=== PATIENT | male | born 1955 | race Caucasian/White ===

== ENCOUNTER → 2016-09-19 | Day surgery (SDC) | payer BC ==
[2016-09-08 09:09] VITALS: Ht 177.8 cm; Wt 86.4 kg
[~2016-09-19] VITALS: Ht 177.8 cm; Wt 86.4 kg
[~2016-09-19] MED LIST: CHOL1CAP57 PO; FINA5TAB4 PO; GLC500 PO; LIDOCAINE HCL 2% 2 ML VIAL (20MG/ML) ONE; LOSA1TAB38 PO; MIDAZOLAM HCL 1 MG/ML 2ML VIAL ONE; MULTCHW PO; OXYC-57 PO; PROPOFOL IV EMULSION 10 MG/ML 20 ML VIAL IV ONE; SIMV20TA2 PO; SODIUM CHLORIDE 0.9% 500ML 500 ML IV ONE; ZINC PO
--- NOTE | 2016-09-19 08:44 | Endo History and Physical ---
History & Physical Date of Service: Sep 19, 2016. Chief Complaint: history of polyps Referring Physician: Dr. Yaakov Calderón History of Present Illness 61 yo CM who presents for colonoscopy secondary to history of polyps. Past Medical History Arthritis, Male Genitourinary Prob., High Cholesterol, Sleep Apnea, Hypertension Past Surgical History Hx Cardiac Surgery: No Hx Internal Defibrillator: No Hx Pacemaker: No Hx Abdominal Surgery: No Hx of Implantable Prosthesis: No Hx Post-Op Nausea and Vomiting: No Hx Cancer Surgery: No Hx Thoracic Surgery: No Hx Orthopedic: No Hx Urinary Tract Surgery: No Family History None Social History Smoking Status: Never Smoker Hx Substance Use: No Hx Alcohol Use: No Allergies Coded Allergies: No Known Allergies (Verified , 09/19/16) Current Medications Reported Home Medications Medications Dose Route/Sig Max Daily Dose Days Date Category Vitamin D3 (Cholecalciferol) 1,000 Unit Cap 1 Cap PO QAM 08/04/15 Reported Centrum Silver (Multiple Vitamins W/ Minerals) 1 Chw Chw 1 Tab PO QAM 08/04/15 Reported Cozaar (Losartan Potassium) 100 Mg Tab 100 Mg PO QAM 08/04/15 Reported Proscar (Finasteride) 5 Mg Tab 5 Mg PO HS 08/04/15 Reported Metformin HCl 500 Mg Tab 1 Tab PO BID 08/04/15 Reported Zocor (Simvastatin) 20 Mg Tab 20 Mg PO QPM 03/26/09 Reported Vital Signs Weight (Kilograms): 86.36 Height (Feet): 5 Height (Inches): 10 Date Time Temp Pulse Resp B/P Pulse Ox O2 Delivery O2 Flow Rate FiO2 09/19/16 08:17 37 83 20 160/87 97 Room Air Physical Exam General Appearance: WD/WN, no apparent distress Respiratory/Chest: Auscultation: breath sounds normal Cardiovascular: Heart Auscultation: RRR Abdomen: Bowel Sounds: normal Inspection & Palpation: soft, non-distended, no tenderness, guarding & rebound Assessment and Plan Assessment: 61 yo CM who presents for colonoscopy secondary to history of polyps. Plan: Proceed with colonoscopy.
--- NOTE | 2016-09-19 09:11 | Discharge Instructions ---
Endoscopy Patient Instructions Date / Procedure(s) Performed Sep 19, 2016. Colonoscopy Allergy Information Coded Allergies: No Known Allergies (Verified , 09/19/16) Discharge Date / Findings Sep 19, 2016. Colon polyps Internal hemorrhoids Medication Instructions Stopped Medication(s): Stopped meds on Monday except Cozaar OK to resume all medications today as prescribed Reported Home Medications Medications Dose Route/Sig Max Daily Dose Days Date Category Vitamin D3 (Cholecalciferol) 1,000 Unit Cap 1 Cap PO QAM 08/04/15 Reported Centrum Silver (Multiple Vitamins W/ Minerals) 1 Chw Chw 1 Tab PO QAM 08/04/15 Reported Cozaar (Losartan Potassium) 100 Mg Tab 100 Mg PO QAM 08/04/15 Reported Proscar (Finasteride) 5 Mg Tab 5 Mg PO HS 08/04/15 Reported Metformin HCl 500 Mg Tab 1 Tab PO BID 08/04/15 Reported Zocor (Simvastatin) 20 Mg Tab 20 Mg PO QPM 03/26/09 Reported Provider Instructions Activity Restrictions - No exercising or heavy lifting for 24 hours. - Do not drink alcohol the day of the procedure. - Do not drive a car or operate machinery until the day after the procedure. - Do not make any important decisions or sign important papers in 24 hours after the procedure. Following Day: - Return to full activity which may include returning to work/school. Diet Start your diet with liquids and light foods (jello, soup, juice, toast). Then eat your usual diet if not nauseated. Treatment For Common After Affects For mild abdominal pain, bloating, or excessive gas: - Rest - Eat lightly - Lie on right side Follow-Up Information Follow-up with Dr. Yaakov Calderón as scheduled Anesthesia Information What You Should Know You have had a procedure that required some medicine to reduce anxiety and discomfort. This treatment is called moderate sedation. After receiving the treatment, you may be sleepy, but you will be able to breathe on your own. The effects of the treatment may last for several hours. Follow these instructions along with Activity/Diet recommendations noted above: * Do NOT do anything where dizziness or clumsiness would be dangerous. * Rest quietly at home today, then you can be up and about tomorrow. * Have a responsible person stay with you the rest of today. * You may have had an I.V. today. If so, you may take the dressing off later today. Recommendations Call your doctor if: * Trouble breathing * Continuous vomiting for more than 24 hours * Temperature above 101 degrees * Severe abdominal pain or bloating * Pain not relieved by pain medicine ordered * There is increased drainage or redness from any incision * A large amount of rectal bleeding greater than 2-3 tablespoons. (If you had a polyp/s removed or have hemorrhoids, a small amount of blood - from the rectum is to be expected.) * You have any unanswered questions or concerns. IN THE EVENT OF A SERIOUS EMERGENCY, GO TO THE NEAREST EMERGENCY ROOM Your discharge instructions were prepared by provider Willian Shaw. Patient Instructions Signature Page Carlitos Barry Patient (or Guardian) Signature/Date: I have read and understand the instructions given to me by my caregivers. Caregiver/RN/Doctor Signature/Date: The above-named patient and/or guardian has received patient instructions on this date. + Original Patient Signature Page (only) stays with chart. Please make copy for patient.
--- NOTE | 2016-09-19 09:23 | Anesthesiology Progress Note ---
Anesthesia Post Op Note Date & Time Sep 19, 2016 at 09:23 Vital Signs Pain Intensity: 0 Vital Signs Past 12 Hours Date Time Temp Pulse Resp B/P Pulse Ox O2 Delivery O2 Flow Rate FiO2 09/19/16 09:14 37 82 20 135/76 98 Room Air 09/19/16 08:17 37 83 20 160/87 97 Room Air Notes Mental Status: alert / awake / arousable, participated in evaluation Pt Amnestic to Procedure: Yes Nausea / Vomiting: adequately controlled Pain: adequately controlled Airway Patency, RR, SpO2: stable & adequate BP & HR: stable & adequate Hydration State: stable & adequate Anesthetic Complications: no major complications apparent
[2016-09-19 09:44] VITALS: BP 145/92; PULSE 75; O2SAT 99
--- NOTE | 2016-09-19 11:05 | GI REPORT ---
Procedure Date: 09/19/2016 8:45 AM Procedure: Colonoscopy Indications: High risk colon cancer surveillance: Personal history of colonic polyps Medicines: Monitored Anesthesia Care Complications: No immediate complications. Estimated Blood Loss: Estimated blood loss: none. Procedure: Pre-Anesthesia Assessment: - Prior to the procedure, a History and Physical was performed, and patient medications and allergies were reviewed. The patient's tolerance of previous anesthesia was also reviewed. The risks and benefits of the procedure and the sedation options and risks were discussed with the patient. All questions were answered, and informed consent was obtained. Prior Anticoagulants: The patient has taken no previous anticoagulant or antiplatelet agents. ASA Grade Assessment: II - A patient with mild systemic disease. After reviewing the risks and benefits, the patient was deemed in satisfactory condition to undergo the procedure. After I obtained informed consent, the scope was passed under direct vision. Throughout the procedure, the patient's blood pressure, pulse, and oxygen saturations were monitored continuously. The scope was introduced through the anus and advanced to the terminal ileum. The colonoscopy was performed without difficulty. The patient tolerated the procedure well. The quality of the bowel preparation was good. The terminal ileum, ileocecal valve, appendiceal orifice, and rectum were photographed. Findings: Two sessile polyps were found in the ascending colon and in the cecum. The polyps were 5 to 6 mm in size. These polyps were removed with a hot snare. Resection and retrieval were complete. Non-bleeding internal hemorrhoids were found during retroflexion. The hemorrhoids were small. Impression: - Two 5 to 6 mm polyps in the ascending colon and in the cecum, removed with a hot snare. Resected and retrieved. - Non-bleeding internal hemorrhoids. Recommendation: - Resume previous diet. - Continue present medications. - Repeat colonoscopy for surveillance based on pathology results. - Return to primary care physician as previously scheduled. Willian Shaw DO 09/19/2016 9:16:42 AM This report has been signed electronically. Note Initiated On: 09/19/2016 8:45 AM I attest to the content of the Intraoperative Record and orders documented therein, exceptions below
== END | disposition home or self-care (01) ==
LOC: C.GI 07:48
PROVIDERS: ATTEND Internal Medicine
DX: Z12.11 Encounter for screening for malignant neoplasm of colon (principal); D12.2 Benign neoplasm of ascending colon; D12.0 Benign neoplasm of cecum; K64.8 Other hemorrhoids; I10 Essential (primary) hypertension; G47.30 Sleep apnea, unspecified; E78.00 Pure hypercholesterolemia, unspecified

== ENCOUNTER → 2017-01-09 | Outpatient (CLI) | payer BC ==
[~2017-01-09] MED LIST changes: -LIDOCAINE HCL 2% 2 ML VIAL (20MG/ML) ONE; -MIDAZOLAM HCL 1 MG/ML 2ML VIAL ONE; -PROPOFOL IV EMULSION 10 MG/ML 20 ML VIAL IV ONE; -SODIUM CHLORIDE 0.9% 500ML 500 ML IV ONE
[2017-01-09 12:17] LABS: HEMATOCRIT 43.8 % (42-52); MEAN CELL VOLUME 88.1 fL (80-100); MEAN CORPUSCULAR HEMOGLOBIN 30.4 pg (25-34); MEAN CORPUSCULAR HGB CONC 34.5 g/dl (32-36); MEAN PLATELET VOLUME 9.5 fL (7.4-10.4); PLATELET COUNT 119 K/uL (130-400); RED BLOOD COUNT 4.97 M/uL (4.7-6.1); WHITE BLOOD COUNT 6.13 K/uL (4.8-10.8)
[2017-01-09 12:34] LABS: ALT/SGPT 28 U/L (12-78); BLOOD UREA NITROGEN 15 mg/dl (7-18); BUN/CREATININE RATIO 14.6 (10-20); CARBON DIOXIDE 27 mmol/L (21-32); CHLORIDE 110 mmol/L (98-107); CHOLESTEROL 141 mg/dl (0-200); GLUCOSE 96 mg/dl (70-99); POTASSIUM 3.6 mmol/L (3.5-5.1); SODIUM 146 mmol/L (136-145); TRIGLYCERIDES 108 mg/dl (0-150); VERY LOW DENSITY LIPOPROT CALC 22 mg/dl
[2017-01-09 12:43] LABS: ESTIMATED AVERAGE GLUCOSE 134 mg/dl; HA1C FLAG Normal (Normal)
[2017-01-09 12:44] LABS: ALB/GLOB RATIO 1.1 (0.9-2); ALKALINE PHOSPHATASE 89 U/L (45-117); AST/SGOT 16 U/L (15-37); CHOLESTEROL/HDL RATIO 2.6; HDL CHOLESTEROL 54 mg/dl; LDL CHOLESTEROL CALCULATED 65 mg/dl
--- NOTE | 2017-01-09 16:06 | DIAGNOSTIC IMAGING REPORT ---
SINUS CT CT DOSE: 301.30 mGycm HISTORY: CHRONIC SINUSITIS TECHNIQUE: Multiaxial CT images of the paranasal sinuses were performed and reformatted in the coronal plane without the use of contrast. COMPARISON: Head CT 08/24/2015. FINDINGS: Complete opacification of the right frontal sinus. However, the right frontoethmoidal recess is patent. The left frontal sinus, residual ethmoid air cells, sphenoid sinuses, and maxillary sinuses are clear. The mastoid air cells are clear. Bilateral ethmoidectomies. Orbital floors and lamina papyracea are intact. Narrowing and partial opacification of the right ethmoid infundibulum. The brain parenchyma and orbits are unremarkable. Nasal septum demonstrates slight right deviation. IMPRESSION: 1. Complete opacification of right frontal sinus. 2. Postoperative changes as described above. Electronically signed by: Gerson Lobo M.D. 01/09/2017 4:05 PM Dictated Date/Time: 01/09/2017 3:43 PM
--- NOTE | 2017-01-13 10:53 | CODING QUERY MEDICAL NECESSITY ---
SUPPORTING DIAGNOSIS NEEDED A supporting diagnosis is required for the test/procedure performed on this patient in order for us to be reimbursed by the patient's insurance. Please provide a supporting diagnosis for the following test/procedure listed below next to the test name along with your signature. *If there is no additional diagnosis for this patient that would support the following test/procedure please document that below next to the test/procedure. Test(s)/Procedure(s) that require a supporting diagnosis: * PSA DIAGNOSIS: * VITAMIN B12 DIAGNOSIS: Provider Signature: Date: Thank you Debra Escobar [place] [employer] Once completed, please kindly fax back to [phone] For questions please call [phone]
== END | disposition home or self-care (01) ==
LOC: C.CTS 10:24
PROVIDERS: ATTEND Otolaryngology
DX: R73.09 Other abnormal glucose (principal); J32.9 Chronic sinusitis, unspecified; N40.0 Benign prostatic hyperplasia without lower urinary tract symptoms; D51.9 Vitamin B12 deficiency anemia, unspecified

== ENCOUNTER → 2017-02-06 | Outpatient (CLI) | payer BC | END | disposition home or self-care (01) | LOC: C.CPL 16:25 | PROVIDERS: ATTEND Family Medicine | DX: Z01.810 Encounter for preprocedural cardiovascular examination (principal) ==

== ENCOUNTER → 2017-02-16 | Day surgery (SDC) | payer BC ==
[2017-02-13 09:04] VITALS: Ht 177.8 cm; Wt 86.4 kg
--- NOTE | 2017-02-15 16:36 | History and Physical: Surg Cnt ---
History & Physical Date Feb 15, 2017. 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 Past Medical/Surgical History Medical Problems: (1) Hypertension Additional History Hepatic Disease: No Endocrine Disorder: No Kidney Disease: No Hypertension: No Heart Disease: No Bleeding Tendencies: No Infectious Diseases: No Allergies Coded Allergies: No Known Allergies (Verified , 02/13/17) Home Medications Scheduled Cholecalciferol (Vitamin D3), 1 CAP PO QAM Finasteride (Proscar), 5 MG PO HS Losartan Potassium (Cozaar), 100 MG PO QAM Metformin HCl (Metformin HCl), 1 TAB PO BID Multiple Vitamins W/ Minerals (Centrum Silver), 1 TAB PO QAM Simvastatin (Zocor), 20 MG PO QPM [Zinc], 22 MG PO QAM Physical Examination Skin: warm/dry, no rash Eyes: normal inspection, EOMI, sclerae normal ENT: normal ENT inspection, pharynx normal Head: normocephalic, atraumatic Neck: supple, no adenopathy, trachea midline Respiratory/Chest: lungs clear, normal breath sounds, no respiratory distress Cardiovascular: regular rate, rhythm, no edema, no murmur Abdomen / GI: normal bowel sounds, non tender Back: normal inspection Extremities: normal inspection, normal range of motion Neurologic/Psych: no motor/sensory deficits, alert, normal reflexes, oriented x 3 Diagnosis recurrent papilloma right frontal sinus Plan of Treatment endoscopic sinus surgery
[~2017-02-16] VITALS: Ht 177.8 cm; Wt 86.4 kg
[~2017-02-16] MED LIST changes: +ATROPINE SULFATE 0.1 MG/ML 5ML SYR IV PRN; +CEFAZOLIN 2000 MG/60 ML D5W IV SCH; +DEXAMETHASONE SOD INJ 4 MG/ML VIAL ONE; +EpHEDrine SULFATE INJ 50 MG/ML AMP IV PRN; +EpINEphrine INJ 1MG/ML AMP 1 MG/ML AMP ONE; +FENTANYL CITRATE INJ 50 MCG/1 ML 2 ML VIAL IV PRN; +FENTANYL CITRATE INJ 50 MCG/1 ML 2 ML VIAL ONE; +FLUMAZENIL 0.1 MG/1 ML 10 ML VIAL IV PRN; +GLYCOPYRROLATE INJ 0.2 MG/ML VIAL ONE; +LABETALOL HCL IV 5 MG/ML 20ML IV PRN; +LABETALOL HCL IV 5 MG/ML 20ML IV STA; +LACTATED RINGER'S 1000ML 1,000 ML IV SCH; +LIDO 2%/EPINEPHRINE 1:100000 20 ML VIAL INFIL ONE; +LIDOCAINE 4% MPF SOAK 5 ML = 1 DOSE TOP ONE; +LIDOCAINE HCL 2% 2 ML VIAL (20MG/ML) ONE; +MIDAZOLAM HCL 1 MG/ML 2ML VIAL ONE; +NALOXONE HCL 0.4 MG/1 ML VIAL/CARP IV PRN; +NEOSTIGMINE METHYLSULFATE 5 MG/5 ML SYR ONE; +ONDANSETRON INJ 2 MG/ML 2 ML VIAL IV PRN; +ONDANSETRON INJ 2 MG/ML 2 ML VIAL ONE; +OXYCODONE/ACETAMINOPHEN 5-325 TAB PO PRN; +PROMETHAZINE HCL INJ 12.5 MG in SODIUM CHLORIDE 0.9% 50ML 50 ML IV PRN; +PROPOFOL IV EMULSION 10 MG/ML 20 ML VIAL IV ONE; +SODIUM CHLORIDE 0.9% 1000ML 1,000 ML IV SCH; +SUCCINYLCHOLINE CHLORIDE 20 MG/ML 10 ML VIAL IV ONE
--- NOTE | 2017-02-16 12:04 | History & Physical Bridge Note ---
H&P Re-Evaluation Bridge Note: I have examined the patient, reviewed the History & Physical and in the interval since the performance of the History & Physical I have noted the following changes of clinical significance: No changes noted
--- NOTE | 2017-02-16 13:35 | Discharge Instructions-SurgCtr ---
Discharge Instructions Date of Service Feb 16, 2017. Visit Reason for Visit: Chronic Sinusitis, Papilloma Discharge Discharge Diagnosis / Problem: polyps Discharge Goals Goal(s): Improve disease control Activity Recommendations Activity Limitations: resume your previous activity Anesthesia . Post Anesthesia Instructions: If you have had General Anesthesia or IV Sedation: * Do not drive today. * Resume driving when surgeon permits. * Do not make important decisions or sign legal documents today. * Call surgeon for: 1. Temperature elevations greater than 101 degrees F. 2. Uncontrollable pain. 3. Excessive bleeding. 4. Persistent nausea and vomiting. 5. Medication intolerance (nausea, vomiting or rash). * For nausea and vomiting use only clear liquids such as: tea, soda, bouillon until nausea subsides, then gradually increase diet as tolerated. * If you have any concerns or questions, call your surgeon's office. If physician is unavailable and it is an emergency, call 911 or go to the nearest emergency room. . Instructions / Follow-Up Instructions / Follow-Up ACTIVITY RECOMMENDATIONS: * Being up and around is good, but no strenuous activity, heavy lifting or physical exertion for one week. * Keep your head elevated 30 degrees when lying down or sleeping. * Do not blow your nose for 48 hours, sniff back instead. * Avoid hot showers. OVER THE COUNTER MEDICATIONS: * You may use Tylenol * Avoid aspirin or aspirin containing products, e.g. as they may increase bleeding. SPECIAL CARE INSTRUCTIONS: * Expect to have bloody drainage from your nose and/or down your throat for one to three days. Change drip pad as needed. * Begin irrigating your nose with saline solution today, at least six to ten times per day and sniff back to help remove old clots or crust. * You may experience nasal and facial congestion, pain and pressure, this is normal. * Please call with any significant and/or progressive pain, redness, swelling around the eyes, visual changes, fever of 101.5 degrees F, active bleeding or any problems or concerns. * If active bleeding occurs, spray the nose three times at one minute intervals with Afrin spray and call or cell phone: . If unable to reach the doctor, go to the nearest Emergency Department. Special Diet: * Avoid extremely hot fluids. FOLLOW UP VISIT: Follow-up Visit with Dr. Morataya If not already scheduled, please call to schedule. Diet Recommendations Home Diet: no limitations Procedures Procedures Performed: Endoscopic Sinus Surgery, Excision Right Frontal Sinus Polyp, Right and Left Total Ethmoidectomy Pending Studies Studies pending at discharge: no Medical Emergencies . Who to Call and When: Medical Emergencies: If at any time you feel your situation is an emergency, please call 911 immediately. . Non-Emergent Contact Non-Emergency issues call your: Primary Care Provider . . "Provider Documentation" section prepared by Patricia Morataya. . [place] Drug Monitoring Program Search Results: no issues identified
--- NOTE | 2017-02-16 13:37 | Medical Student: [facility] ---
Operative Report Operative Date Feb 16, 2017. Pre-Operative Diagnosis Right Frontal sinus papilloma Post-Operative Diagnosis same Procedure(s) Performed Endoscopic sinus surgery, Excision of right frontal sinus polyp, Right and left total ethmoidectomy Surgeon Dr. Morataya Clinical Trial Head Surgeon(s) N/a Estimated Blood Loss 15cc Findings Right frontal sinus polyp Fluids (cc crystalloids) Lactated Ringers Specimens Right frontal sinus polyp, path pending Anesthesia General Complication(s) None Disposition Recovery Room / PACU Description of Procedure See Surgeon Op note, Dr. Morataya
--- NOTE | 2017-02-16 13:47 | OPERATIVE REPORT ---
DATE OF OPERATION: 02/16/2017 PREOPERATIVE DIAGNOSES: Chronic sinusitis and recurrent papilloma. POSTOPERATIVE DIAGNOSES: Same. PROCEDURES: Right and left frontal sinusotomy and right and left total ethmoidectomy. SURGEON: Dr. Morataya. ANESTHESIA: General endotracheal. COMPLICATIONS: None. BLOOD LOSS: 30 mL. HISTORY: This 61-year-old gentleman presented with recurrent gross inverted papilloma and right ethmoid and right nasofrontal duct. He again has a polypoid lesion at the right ethmoid blocking the nasofrontal duct. DESCRIPTION OF PROCEDURE: The patient was brought to the operating room and placed in the supine position. General endotracheal anesthesia was induced, prepped, draped in the usual sterile manner. Nose decongested using cottonoids with topical solution of 4 mL of 4% Xylocaine with 1 mL of adrenaline. Injection of 2% Xylocaine with 1:100,000 strength epinephrine was also used. The Colibri IO device calibrated and used for the entire procedure. The left nasofrontal duct was cannulated with a guidewire with Colibri IO computer guidance and dilated using the 6-mm balloon. This dilated easily. Attention was turned to the right side where the right nasofrontal duct was dilated with the balloon with [employer] computer guidance. The guidewire was left in place as a marker for removing polyps. The Blakesley forceps was used to remove the polyps for specimen. These looked more like polyps then papilloma. At this point, the balloon was used to irrigate out the right frontal sinus purulent material and also the balloon was reinflated to push 2 polyps further down into the ethmoid area. These 2 polyps from the nasofrontal duct were removed using the upward Blakesley forceps, opening up the nasofrontal duct. The scar tissue in the ethmoid cavity was further opened using the shaver coupled with the BrainLAB device, opening up the anterior and posterior ethmoids. The left nasofrontal duct was opened slightly using the shaver superiorly and also posteriorly, the ethmoids were partially cover with adhesions and these were removed using the shaver, opening up the left anterior and posterior ethmoids. The mini stent was placed in the right nasofrontal duct and a regular stent was placed in the left middle meatus. The patient tolerated the procedure well and was taken to the recovery area in satisfactory condition. I attest to the content of the Intraoperative Record and any orders documented therein. Any exception s are noted below.
[2017-02-16 14:25] VITALS: TEMP 36.5
[2017-02-16 15:03] VITALS: BP 156/92; PULSE 66; O2SAT 97
--- NOTE | 2017-02-16 15:09 | Anesthesia Progress Nt - [facility] ---
Anesthesia Post Op Note Date & Time Feb 16, 2017 at 15:08 Vital Signs Pain Intensity: 0 Vital Signs Past 12 Hours Date Time Temp Pulse Resp B/P (MAP) Pulse Ox O2 Delivery O2 Flow Rate FiO2 02/16/17 15:03 66 20 156/92 (113) 97 Room Air 02/16/17 14:25 36.5 62 22 158/95 (116) 95 Room Air 02/16/17 14:22 67 12 02/16/17 14:22 68 12 95 02/16/17 14:21 169/97 02/16/17 14:17 71 13 02/16/17 14:17 71 13 97 02/16/17 14:16 146/96 02/16/17 14:15 36.6 69 20 146/96 96 Room Air 02/16/17 14:14 74 21 02/16/17 14:14 73 21 97 02/16/17 14:13 74 21 02/16/17 14:13 74 21 97 02/16/17 14:11 152/94 02/16/17 14:08 67 14 96 02/16/17 14:08 68 14 02/16/17 14:07 68 16 02/16/17 14:07 67 16 96 02/16/17 14:06 161/94 02/16/17 14:04 151/99 02/16/17 14:02 71 18 02/16/17 14:02 70 18 97 02/16/17 14:01 163/101 02/16/17 13:57 76 14 97 02/16/17 13:57 76 14 02/16/17 13:56 162/105 02/16/17 13:53 160/97 02/16/17 13:52 72 17 02/16/17 13:52 73 17 158/103 100 02/16/17 13:51 158/107 02/16/17 13:50 72 15 02/16/17 13:50 71 15 100 02/16/17 13:45 72 17 165/93 02/16/17 13:45 72 17 02/16/17 13:44 168/102 02/16/17 13:43 76 18 100 02/16/17 13:43 78 18 02/16/17 13:41 163/101 02/16/17 13:38 77 4 02/16/17 13:38 75 4 100 02/16/17 13:37 78 11 02/16/17 13:37 78 11 100 02/16/17 13:36 167/100 02/16/17 13:32 81 8 100 02/16/17 13:32 81 8 02/16/17 13:31 78 12 164/96 100 02/16/17 13:31 78 12 02/16/17 13:27 168/104 02/16/17 13:26 36.7 84 18 168/104 98 Room Air 02/16/17 13:26 85 99 02/16/17 13:26 85 02/16/17 10:18 37.1 60 18 144/94 (111) 99 Room Air Notes Mental Status: alert / awake / arousable, participated in evaluation Pt Amnestic to Procedure: Yes Nausea / Vomiting: adequately controlled Pain: adequately controlled Airway Patency, RR, SpO2: stable & adequate BP & HR: stable & adequate Hydration State: stable & adequate Anesthetic Complications: no major complications apparent
== END | disposition home or self-care (01) ==
LOC: X.SURG 09:58
PROVIDERS: ATTEND Otolaryngology
DX: J01.11 Acute recurrent frontal sinusitis (principal); J33.8 Other polyp of sinus; I10 Essential (primary) hypertension; G47.33 Obstructive sleep apnea (adult) (pediatric); E78.5 Hyperlipidemia, unspecified; E11.9 Type 2 diabetes mellitus without complications; Z79.84 Long term (current) use of oral hypoglycemic drugs

== ENCOUNTER → 2017-03-24 | Outpatient (CLI) | payer BC ==
[~2017-03-24] MED LIST changes: -ATROPINE SULFATE 0.1 MG/ML 5ML SYR IV PRN; -CEFAZOLIN 2000 MG/60 ML D5W IV SCH; -DEXAMETHASONE SOD INJ 4 MG/ML VIAL ONE; -EpHEDrine SULFATE INJ 50 MG/ML AMP IV PRN; -EpINEphrine INJ 1MG/ML AMP 1 MG/ML AMP ONE; -FENTANYL CITRATE INJ 50 MCG/1 ML 2 ML VIAL IV PRN; -FENTANYL CITRATE INJ 50 MCG/1 ML 2 ML VIAL ONE; -FLUMAZENIL 0.1 MG/1 ML 10 ML VIAL IV PRN; -GLYCOPYRROLATE INJ 0.2 MG/ML VIAL ONE; -LABETALOL HCL IV 5 MG/ML 20ML IV PRN; -LABETALOL HCL IV 5 MG/ML 20ML IV STA; -LACTATED RINGER'S 1000ML 1,000 ML IV SCH; -LIDO 2%/EPINEPHRINE 1:100000 20 ML VIAL INFIL ONE; -LIDOCAINE 4% MPF SOAK 5 ML = 1 DOSE TOP ONE; -LIDOCAINE HCL 2% 2 ML VIAL (20MG/ML) ONE; -MIDAZOLAM HCL 1 MG/ML 2ML VIAL ONE; -NALOXONE HCL 0.4 MG/1 ML VIAL/CARP IV PRN; -NEOSTIGMINE METHYLSULFATE 5 MG/5 ML SYR ONE; -ONDANSETRON INJ 2 MG/ML 2 ML VIAL IV PRN; -ONDANSETRON INJ 2 MG/ML 2 ML VIAL ONE; -OXYCODONE/ACETAMINOPHEN 5-325 TAB PO PRN; -PROMETHAZINE HCL INJ 12.5 MG in SODIUM CHLORIDE 0.9% 50ML 50 ML IV PRN; -PROPOFOL IV EMULSION 10 MG/ML 20 ML VIAL IV ONE; -SODIUM CHLORIDE 0.9% 1000ML 1,000 ML IV SCH; -SUCCINYLCHOLINE CHLORIDE 20 MG/ML 10 ML VIAL IV ONE
--- NOTE | 2017-03-24 12:37 | DIAGNOSTIC IMAGING REPORT ---
LEFT TIBIA/FIBULA 2 VIEWS ROUTINE CLINICAL HISTORY: 61 years-old Male presenting with left leg pain, no trauma. TECHNIQUE: Frontal and lateral views of the left lower leg were obtained. COMPARISON: None. FINDINGS: Knee joint and ankle mortise grossly intact. No acute fracture or malalignment is evident. No significant soft tissue abnormality. IMPRESSION: No acute osseous injury of the left lower leg. Electronically signed by: Alexy Jimenez M.D. 03/24/2017 12:36 PM Dictated Date/Time: 03/24/2017 12:35 PM
--- NOTE | 2017-03-24 12:56 | DIAGNOSTIC IMAGING REPORT ---
LEFT EXTREMITY NONVASCULAR LIMITED CLINICAL HISTORY: 61 years-old Male presenting with L LEG PAIN. TECHNIQUE: Real-time grayscale ultrasound imaging of the left calf was performed. Color Doppler was also performed. COMPARISON: None. FINDINGS: No fluid collection or subcutaneous or skin thickening in the site of clinical interest at the anteromedial left calf. Patent deep and superficial veins of the left calf partially visualized. IMPRESSION: 1. No significant abnormality at the site of clinical concern in the left anteromedial calf. Electronically signed by: Alexy Jimenez M.D. 03/24/2017 12:54 PM Dictated Date/Time: 03/24/2017 12:54 PM
== END | disposition home or self-care (01) ==
LOC: C.ULTR 12:01
PROVIDERS: ATTEND Family Medicine
DX: M79.605 Pain in left leg (principal)

== ENCOUNTER → 2017-08-14 | Outpatient (CLI) | payer OTHER ==
--- NOTE | 2017-08-14 11:33 | DIAGNOSTIC IMAGING REPORT ---
PELVIS 1 OR 2 VIEW ROUTINE CLINICAL HISTORY: Bilateral back pain. COMPARISON STUDY: Sacroiliac joint radiographs February 27, 2016. FINDINGS: The sacroiliac joints and symphysis pubis are intact. No fracture or suspicious lesion is identified within the pelvis or hips. There is mild osteoarthritis of both hips. IMPRESSION: 1. No acute fracture within the pelvis or hips. 2. Mild osteoarthritis of the bilateral hips. Electronically signed by: Uziel Qiu M.D. 08/14/2017 11:32 AM Dictated Date/Time: 08/14/2017 11:31 AM
--- NOTE | 2017-08-14 11:36 | DIAGNOSTIC IMAGING REPORT ---
L-SPINE MIN 4 VIEWS ROUTINE CLINICAL HISTORY: BILATERAL BACK PAIN COMPARISON: Lumbar spine radiographs February 27, 2016. FINDINGS: There is minimal dextroscoliosis of the lumbar spine. Vertebral body heights are maintained. There is no fracture or suspicious lesion. There is moderate disc space narrowing with osteophytosis and vacuum disc phenomenon at L5-S1. There is mild multilevel degenerative disc disease and facet arthrosis at the remainder of the lumbar levels. IMPRESSION: 1. No acute lumbar spine fracture or subluxation. 2. Moderate degenerative disc disease at L5-S1. 3. Minimal dextroscoliosis of the lumbar spine. Electronically signed by: Uziel Qiu M.D. 08/14/2017 11:34 AM Dictated Date/Time: 08/14/2017 11:34 AM
== END | disposition home or self-care (01) ==
LOC: C.RAD1850 11:06
PROVIDERS: ATTEND Family Medicine
DX: M54.9 Dorsalgia, unspecified (principal); M51.37 Other intervertebral disc degeneration, lumbosacral region; M41.86 Other forms of scoliosis, lumbar region; M16.0 Bilateral primary osteoarthritis of hip

== ENCOUNTER → 2018-02-09 | Outpatient (CLI) | payer OTHER ==
[~2018-02-09] MED LIST changes: +ATOR-54 PO; -SIMV20TA2 PO
== END | disposition home or self-care (01) ==
LOC: C.CPL 13:23
PROVIDERS: ATTEND Otolaryngology
DX: Z01.810 Encounter for preprocedural cardiovascular examination (principal)

== ENCOUNTER 2021-11-30 07:26 | Observation (INO) ==
--- NOTE | 2021-11-16 11:57 | PAT Medication Instructions ---
Medication Instructions Date of Service November 16, 2021 Home Medications Medication Instructions Recorded sodium sul 1.479 gram-potas ch See Rx Instructions .ROUTE 11/16/21 0.188 gram-magnes sul 0.225 gram .COMPLEX #24 tab tablet (Sutab) atorvastatin 20 mg tablet 20 mg PO QAM cholecalciferol (vitamin D3) 25 mcg (1,000 unit) capsule (Vitamin D3) 1,000 unit PO QAM metformin 500 mg tablet 500 mg PO QAM multivitamin 1 tab PO QAM amlodipine 2.5 mg tablet 2.5 mg PO QAM metformin 500 mg tablet 1,000 mg PO QDD mometasone 50 mcg/actuation nasal spray (Nasonex) 2 spray INTRANASAL 4XWK sodium chloride 0.65 % nasal spray aerosol (Saline Nasal) 1 spray INTRANASAL DAILY zinc 22 mg tablet 22 mg PO QAM finasteride 5 mg tablet 5 mg PO QAM ascorbate calcium (vitamin C) 500 mg tablet 500 mg PO QAM peg 400-propylene glycol (PF) 0.4 %-0.3 % eye drops in a dropperette (Systane (PF)) 1 drp OPHTHALMIC (EYE) BID PRN sodium sul 1.479 gram-potas ch 0.188 gram-magnes sul 0.225 gram tablet (Sutab) See Rx Instructions .ROUTE .COMPLEX Continue as directed sodium sul 1.479 gram-potas ch 0.188 gram-magnes sul 0.225 gram tablet (Sutab) See Rx Instructions .ROUTE .COMPLEX (prep for colonoscopy) DO NOT take the morning of surgery cholecalciferol (vitamin D3) 25 mcg (1,000 unit) capsule (Vitamin D3) 1,000 unit PO QAM metformin 500 mg tablet 500 mg PO QAM multivitamin 1 tab PO QAM zinc 22 mg tablet 22 mg PO QAM ascorbate calcium (vitamin C) 500 mg tablet 500 mg PO QAM Take morning of surgery With a small sip of water, OTHERWISE NOTHING TO EAT OR DRINK AFTER MIDNIGHT: atorvastatin 20 mg tablet 20 mg PO QAM amlodipine 2.5 mg tablet 2.5 mg PO QAM mometasone 50 mcg/actuation nasal spray (Nasonex) 2 spray INTRANASAL 4XWK sodium chloride 0.65 % nasal spray aerosol (Saline Nasal) 1 spray INTRANASAL DAILY finasteride 5 mg tablet 5 mg PO QAM peg 400-propylene glycol (PF) 0.4 %-0.3 % eye drops in a dropperette (Systane (PF)) 1 drp OPHTHALMIC (EYE) BID PRN (if needed) Take evening before surgery metformin 500 mg tablet 1,000 mg PO QDD peg 400-propylene glycol (PF) 0.4 %-0.3 % eye drops in a dropperette (Systane (PF)) 1 drp OPHTHALMIC (EYE) BID PRN (if needed) Other Notes If you have any questions please call us at [phone] or [phone] or [phone] or [phone]
--- NOTE | 2021-11-17 13:04 | Anesthesiology Consultation ---
Date of Service November 17, 2021 Assessment & Plan (1) Encounter for pre-operative examination: - COVID screening: Per assessment on 11/17: No known COVID-19 positive contacts or current COVID-19 related symptoms. Travel screen negative. Surgeon arranging preop COVID testing. Awaiting results. - S/P Endoscopic sinus surgery (02/21/2019): [place] [facility] [place]G AM DOS - Cardiology office visit (10/06/21): "Cardiomegaly: This was described on his CT scan and chest x-ray. However, his echocardiogram did not suggest any c ardiac dilation or cardiomegaly. He does have very mild concentric LVH which would not likely suggest enlargement on other imaging studies. I do not believe he suffers from an enlarged heart.. Mitral regurgitation: No murmur on examination. Discovered incidentally on echocardiography. No symptoms. Preserved LV systolic function chamber dimension. This can be followed over time with repeat echocardiography in 2-3 years.. Hypertension: He describes some higher blood pressures at home on occasion. He plans to discuss additional options for treatment with his primary care physician in the next few weeks. We discussed the importance of regular exercise, maintaining a low-sodium diet, avoiding chronic nonsteroidal use and the importance of good sleep.. Preoperative: He does not manifest any cardiac symptoms or conditions which should preclude or necessitate additional testing leading up to his planned prostatectomy in November. Follow Up: No scheduled follow-up" Chart Review Chart Review: Acceptable Risk for Surgery and Patient seen in Pre Admission Testing Teaching & Discussion Pre-Anesthesia Teaching/Discussion Notes: Instructed NPO after midnight before surgery,except medications with 15 cc of water. Medication instructions provided according to the PAT guidelines. History Surgery Operation Date: 11/30/21 07:30 Proposed Procedures p Laparoscopic Robotic Assisted Radical Retropubic Prostatectomy Possible Open, Possible Lymph Node Dissection, Possible Suprapubic Tube Placement - Liam Moy MD Height/Weight Height: 5 ft 10 in Weight: 77 kg Allergies Allergy/AdvReac Type Severity Reaction Status Date / Time No Known Allergies Allergy Verified 11/19/21 08:01 Medications Home Medications Medication Instructions Recorded Confirmed Last Taken atorvastatin 20 mg tablet 20 mg PO QAM 01/18/19 11/17/21 02/16/21 05:10 cholecalciferol (vitamin D3) 25 1,000 unit PO QAM 01/18/19 11/19/21 11/17/21 mcg (1,000 unit) capsule (Vitamin D3) metformin 500 mg tablet 500 mg PO QAM 01/18/19 11/19/21 11/17/21 multivitamin 1 tab PO QAM 01/18/19 11/19/21 11/17/21 amlodipine 2.5 mg tablet 2.5 mg PO QAM 12/30/20 11/19/21 11/17/21 metformin 500 mg tablet 1,000 mg PO QDD 12/30/20 11/19/21 11/17/21 mometasone 50 mcg/actuation nasal 2 spray INTRANASAL 4XWK 12/30/20 11/17/21 Unknown spray (Nasonex) sodium chloride 0.65 % nasal spray 1 spray INTRANASAL DAILY 12/30/20 11/19/21 11/18/21 aerosol (Saline Nasal) zinc 22 mg tablet 22 mg PO QAM 12/30/20 11/19/21 11/17/21 finasteride 5 mg tablet 5 mg PO QAM 07/09/21 11/19/21 11/17/21 ascorbate calcium (vitamin C) 500 500 mg PO QAM 08/24/21 11/19/21 11/17/21 mg tablet peg 400-propylene glycol (PF) 0.4 1 drp OPHTHALMIC (EYE) BID PRN 11/16/21 11/19/21 11/18/21 %-0.3 % eye drops in a dropperette (Systane (PF)) sodium sul 1.479 gram-potas ch See Rx Instructions .ROUTE 11/16/21 11/19/21 11/19/21 0.188 gram-magnes sul 0.225 gram .COMPLEX #24 tab tablet (Sutab) Past Medical History Medical History Anxiety BPH (benign prostatic hyperplasia) Chronic back pain Depression Diabetes NIDDM Dystonia left hand- treated with botox/splinting in the past Eye inflamed macula swelling of left eye GERD (gastroesophageal reflux disease) controlled History of COVID-19 Dx 08/11/21 ([facility]) > symptoms at time: cough, mild fever > resolved History of IBS Hyperlipidemia Hypertension Meningioma Stable/under surveillance (Dr. Feliberto Flores; [facility] [place] [facility] [place] no surgical intervention- 07/2022 f/u recommended Osteoarthritis of shoulders, bilateral Prostate cancer Sleep apnea CPAP-compliant Superficial varicosities Multiple superficial varicosities within LLE with thrombus is identified within one of the superficial varicosities 09/21/21 ultrasound > "treated with NSAIDS"/no AC > no issues since per pt Temporomandibular joint disorder Clicking, no recent locking, wears plant guard HS Tinnitus Vertigo Intermittent Exercise / Class Metabolic Activity II 4-5 Yardwork/Stairs/Walk up hill (one FS (no CP, no SOB)) Past Family History Family History Father , Passed age 92 Prostate cancer patient not sure if accurate Family history of diabetes mellitus Mother , Passed age 74 Bladder cancer Family history of diabetes mellitus Brother Family history of diabetes mellitus Brother Family history of diabetes mellitus Other Has no children Past Surgical History Surgical History History of cataract surgery Right/Left History of colonoscopy X 2 History of colonoscopy with polypectomy History of endoscopic sinus surgery X 7 Endoscopic sinus surgery (02/21/2019): [place]#5, [place] [facility] [place] History of prostate biopsy (07/26/21) Dr. Liam Moy History of tonsillectomy History of tooth extraction Past Anesthesia History No Family Hx of Anesthesia Complications and Other (Awaremess with prior cataracts) History of PONV No Hx of PONV and Hx of Motion Sickness (+ occasional vertigo) Social History Smoking Status: Never smoker Do You Dip or Chew Tobacco: No Hx Alcohol Use: Yes Alcohol type: wine alcohol intake frequency: a few times a month Hx Substance Use: No substance use type: does not use Review of Systems Patient denies chest pain, shortness of breath, dyspnea on exertion, fever, chills, cough, wheezing, palpitations. Physical Exam Vital Signs VITALS BP 129/83 P 60 TEMP 97.98 SP02 98%RA RESP 18 PHYSICAL Full cervical extension range of motion. Full TMJ range of motion. TMD 3 finger breaths Mallampati Score 4 (small oral opening, macroglossia) Dentition: intact, + crown/root canal repair Lungs: clear throughout to auscultation Cardiac: regular rate and rhythm, no murmurs noted Spine: normal Carotid arteries: negative bruit Extremities: no edema Lab Results Anesthesia Preop Results Results Anesthesia Widget: WBC 5.55 K/uL (4.8-10.8) 11/17/21 Hgb 13.9 g/dL (14.0-18.0) L 11/17/21 Hct 40.8 % (42-52) L 11/17/21 Plt 143 K/uL (130-400) 11/17/21 Na 142 mmol/L (136-145) 11/17/21 K 3.4 mmol/L (3.5-5.1) L 11/17/21 Cl 107 mmol/L (98-107) 11/17/21 CO2 26 mmol/L (21-32) 11/17/21 BUN 18 mg/dl (6-23) 11/17/21 Creat 0.74 mg/dl (0.6-1.4) 11/17/21 Glucose Level 76 mg/dl (70-99(Fasting)) 11/17/21 Urine Color Yellow 11/17/21 Urine Appearance Clear (Clear) 11/17/21 Urine pH 5.0 (4.5-7.5) 11/17/21 Urine Specific [place] 1.021 (1.000-1.030) 11/17/21 Urine Protein Negative (Negative) 11/17/21 Urine Glucose (UA) Negative (Negative) 11/17/21 Urine Ketones Trace (Negative) H 11/17/21 Urine Blood Negative (Negative) 11/17/21 Urine Nitrite Negative (Negative) 11/17/21 Urine Bilirubin Negative (Negative) 11/17/21 Urine Urobilinogen Negative (Negative) 11/17/21 Urine Leukocyte Esterase Negative (Negative) 11/17/21 Blood Type B Positive 11/17/21 Antibody Screen NEGATIVE 11/17/21 Testing Laboratory Results 07/13/21 HGBA1C 6.7% Electrocardiogram Date: 09/15/21 Sinus bradycardia at 59 bpm. Incomplete right bundle branch block. Chest X-Ray Date: 11/17/21 Findings: + NAD Echocardiogram Date: 09/16/21 EF 50-55%. No regional motion abnormality. Mild concentric LVH. Grade 1 diastolic dysfunction. Mild TR. Moderate MR. RVSP normal.
[~2021-11-30 07:26] MED LIST changes: -ATOR-54 PO; -CHOL1CAP57 PO; -FINA5TAB4 PO; -GLC500 PO; +HEPARIN SOD 5,000 UNIT/0.5 ML VIAL SQ SCH; -LOSA1TAB38 PO; +LR 15ML/HR IV SCH; -MULTCHW PO; -OXYC-57 PO; -ZINC PO
[2021-11-30] MEDS ORDERED: DEXAMETHASONE SOD INJ 4 MG/ML VIAL ONE (09:14)
[2021-11-30] MEDS ORDERED: MIDAZOLAM HCL 1 MG/ML 2ML VIAL ONE (09:14)
[2021-11-30] MEDS ORDERED: ONDANSETRON INJ 2 MG/ML 2 ML VIAL ONE (09:14)
[2021-11-30] MEDS ORDERED: PROPOFOL IV EMULSION 10 MG/ML 20 ML VIAL IV ONE (09:14)
[2021-11-30] MEDS ORDERED: fentaNYL citrate 100 MCG/2 ML VIAL ONE (09:14)
[2021-11-30] MEDS ORDERED: ROCURONIUM BROMIDE 10 MG/ML 5 ML VIAL IV ONE (09:14)
[2021-11-30] MEDS ORDERED: LIDOCAINE 2% 2 ML VIAL/AMP(20MG/ML) INFIL ONE (09:14)
--- NOTE | 2021-11-30 09:17 | History & Physical Bridge Note ---
Date of Service November 30, 2021 History & Physical Bridge Note I have examined the patient, reviewed the History & Physical and in the interval since the performance of the History & Physical I have noted the following changes of clinical significance: no changes noted
[2021-11-30] MEDS ORDERED: ATROPINE SULFATE 0.1 MG/ML 10ML SYR IV PRN (09:28)
[2021-11-30] MEDS ORDERED: ONDANSETRON INJ 2 MG/ML 2 ML VIAL IV PRN ×2 (09:28→14:30)
[2021-11-30] MEDS ORDERED: PROMETHAZINE HCL 6.25 MG in SODIUM CHLORIDE 0.9% 50 ML IV PRN (09:28)
[2021-11-30] MEDS ORDERED: LABETALOL HCL IV 5 MG/ML 20ML IV PRN (09:28)
[2021-11-30] MEDS ORDERED: BUPIVACAINE 0.5 % 5 MG/1 ML MPF 30ML VIAL ONE (09:29)
[2021-11-30] MEDS ORDERED: KETOROLAC TROMETHAMINE 15 MG/ML VIAL IV PRN (09:32)
[2021-11-30] MEDS ORDERED: BELLADONNA/OPIUM SUPP 60 MG SUPP PR ONE (10:02)
[2021-11-30] MEDS ORDERED: HYDROmorphone INJ 2 MG/ML SYR/VIAL ONE (10:18)
[2021-11-30] MEDS ORDERED: LABETALOL HCL IV 5 MG/ML 20ML IV ONE (10:18)
[2021-11-30] MEDS ORDERED: hydrALAZINE HCL 20 MG/ML VIAL ONE (10:33)
[2021-11-30] MEDS ORDERED: FLOSEAL HEMOSTATIC MATRIX 10ML TOP ONE (10:38)
[2021-11-30] MEDS ORDERED: SURGICEL ABSORB HEMOSTAT 2IN X 14IN TOP ONE (10:47)
--- NOTE | 2021-11-30 12:29 | Operative Report ---
PG Post Operative Report Pre & Post Diagnosis Operation Date: 11/30/21 08:50 Pre-Op Diagnosis: Prostate Cancer Post-Op Diagnosis: Prostate Cancer I identified the patient and participated in the time-out.: Yes Procedure Operation Date: 11/30/21 08:50 Actual Procedures p Robotic Assisted Laparoscopic Radical Retropubic Prostatectomy, Bilateral Pelvic Lymph Node Dissection(Not Applicable) - Liam Moy MD Surgeon Liam Moy MD Water Mechanic Tanja Chandra Estimated Blood Loss 100 Findings Consistent with Post-Op Diagnosis Specimens 1. Periprostatic fat 2. Left pelvic lymph nodes 3. Right pelvic lymph nodes 4. Prostate and seminal vesicles Description of Procedure The patient was identified in the preoperative holding area, appropriate informed consents were reviewed and completed, and he was transported to the operating suite. Subcutaneous heparin was administered in the pre-operative holding area. Upon arrival in the operating suite, he received appropriate antibiotics and general anesthesia. He was positioned in dorsal lithotomy, a B&O suppository was inserted after digital rectal exam, and he was prepped and draped in standard fashion. A Mireles catheter was inserted in the sterile field. A Veress needle was passed per umbilicus with uniform insufflation of the abdomen to 15mmHg. He was placed in steep Trendelenburg position. A periumbilical incision was then made to accommodate a 12mm Visiport with 10mm 0degree laparoscope. Inspection of the abdomen was carried out, and there was no evidence of traumatic entry or injury secondary to the Veress needle. After confirming a clear anterior abdominal wall, ports were subsequently placed in standard robotic prostatectomy fashion without incident. To begin the robotic portion of the case, the left lateral aspect of the sigmoid was mobilized off of the left pelvic side wall to allow the pouch of Emmett to be appropriately visualized. I then made an incision in the pouch of Emmett, overlying the seminal vesicles. Both SVs as well as the ampullae of the vasa were entirely dissected, with the vasa transected 3cm from the prostate. The medial umbilical ligaments were then controlled with bipolar electrocautery just inferior to the umbilicus. Following cauterization, they were divided utilizing monopolar cautery. A peritoneal incision was carried from this location to the medial aspect of the internal inguinal rings bilaterally with care to avoid opening through the ring. This incision was concluded when the vas deferens was reached. Dissection of the bladder and prostate off of the posterior aspect of the pubic arch was completed allowing full visualization of the prostate. The fat overlying the prostate was removed en bloc and passed off the table as a specimen labeled "periprostatic fat". The endopelvic fascia was cleared during this portion of the procedure, and subsequently opened - first on the right and then the left. The incision through the endopelvic fascia began near the prostate-bladder junction and was carried to the apex with extreme care to preserve all lateral levator musculature as well as the periurethral musculature and sphincter complex. I additionally preserved the puboprostatic ligaments. I then controlled the DVC with a 3-0 V-lock suture in overlapping/figure of 8 fashion. The lymph node dissection was then conducted. External iliac vessels were identified on the pelvic side wall. The packet of fat and lymphatic tissue that resides just under the iliac vein was elevated and off of the vein with a split and roll technique. The packet was dissected laterally to the circumflex vein and distally to the obturator nerve which was preserved. The pr oximal aspect of the packet was carried towards the bifurcation of the iliac vessels. A combination of monopolar and bipolar cautery were used to assist with control. After completing the dissection on both sides, the packets were collected and passed off of the table as specimens labeled "pelvic lymph nodes". My attention then returned to the prostate, with identification of the bladder neck aided by gentle traction on the Mireles catheter and lateral to medial pressure at the presumed level of the bladder neck with the robotic instruments. An anterior cystotomy was made, the Mireles balloon deflated and the catheter guided through the incision to allow anterior retraction. I attempted to preserve maximal bladder neck musculature as I circumferentially dissected around the bladder neck. After incision through the posterior aspect of the mucosa, the dissection was carried through detrusor muscle until the bilateral ampullae of the vasa were identified. The previously dissected vasa and SVs were brought through the incision and used to elevated the prostate anteriorly. A posterior plane behind the prostate was then developed - splitting Denonvilliers's fascia. This dissection was carried as far as possible towards the apex as well as far as possible laterally. An incision in the lateral prostatic fascia was then made bilaterally to facilitate control of the vascular pedicles and preservation of the nerve bundles. Vasculature running along the posterior/lateral aspect of the prostate was preserved as well as the tissue containing the nerves. Given his pathology, a cautious approach was taken to the nerve preservation. The pedicles were then controlled with a series of Weck clips. The apical attachments of the prostate were remaining at that stage. The DVC wa s divided after control with bipolar cautery over the prostate. Continuous inspection from anterior and lateral views allowed me to closely follow the apical contour of the prostate and maximally preserve urethral length and tissue. The prostate was entirely freed at that point, and collected in an EndoCatch bag before being moved out of the field of vision. Hemostasis was confirmed and anastomosis of the bladder and urethra was completed utilizing a double armed V- Lock stitch. A new Mireles catheter was inserted and the anastomosis tested with irrigation. There was no evidence of leak. A natasha style stitch was placed bilaterally to functionally marsupialize the area of the lymph node dissection. The robot was undocked, the specimen extracted through expansion of the lisset- umbilical camera port. The fascia was closed with a series of 0-PDS figure of 8 stitches. The right assistant county attorney port was closed in two layers - with a figure of 8 0-Vicryl to reapproximate the fascia followed by 4-0 Monocryl to close the skin. Monocryl was used to close all other skin incisions. All wounds were dressed with Dermabond. The case was concluded and the patient taken to the PACU in stable condition. Tanja Chandra assisted from incision to closure. I attest to the content of the Intraoperative Record and any orders documented therein. Any exceptions are noted below.
[2021-11-30 13:06] LABS: Basophils # (auto) 0.02 K/uL (0-0.2); Basophils % (auto) 0.2 %; Eosinophils # (auto) 0.06 K/uL (0-0.5); Eosinophils % (auto) 0.5 %; Hematocrit (blood only) 43.4 % (42-52); Hemoglobin 14.3 g/dL (14.0-18.0); Immature Granulocytes # (auto) 0.03 K/uL (0.00-0.02); Immature Granulocytes % (auto) 0.2 %; Lymphocytes # (auto) 3.03 K/uL (1.2-3.4); Lymphocytes % (auto) 23.6 %; Mean Corpuscular Hemoglobin 30.2 pg (25-34); Mean Corpuscular Volume 91.8 fL (80-100); Monocytes # (auto) 0.27 K/uL (0.11-0.59); Monocytes % (auto) 2.1 %; Neutrophils # (auto) 9.41 K/uL (1.4-6.5); Neutrophils % (auto) 73.4 %; Platelet Count 138 K/uL (130-400); RDW Coefficient of Variation 14.4 % (11.5-14.5); RDW Standard Deviation 48.8 fL (36.4-46.3); Red Blood Count 4.73 M/uL (4.7-6.1); White Blood Count 12.82 K/uL (4.8-10.8)
[2021-11-30] MEDS: HYDROmorphone INJ 1 MG/ML SYRINGE IV PRN ×3 (13:08→13:20)
[2021-11-30 13:27] LABS: Mean Corpuscular Hgb Conc 32.9 g/dL (32-36)
[2021-11-30 13:33] LABS: Calcium 8.9 mg/dl (8.5-10.1); Creatinine Clr Calc Pharmacy 83.2 ml/min; Est GFR (African American) 102.5 ml/min; Est GFR (Non-African American) 88.5 ml/min; Potassium 3.4 mmol/L (3.5-5.1)
--- NOTE | 2021-11-30 13:50 | Anesthesiology Progress Note ---
Date of Service November 30, 2021 Anesthesia Post Procedure Vital Signs Vital Signs: Temp Pulse Pulse Resp BP Pulse Ox 11/30/21 13:40 82 20 142/77 H 96 11/30/21 13:30 80 13 146/82 H 96 11/30/21 13:20 72 16 140/79 99 11/30/21 13:10 69 19 142/75 H 99 11/30/21 13:00 70 16 138/74 100 11/30/21 12:50 81 17 129/81 95 11/30/21 12:40 36.2 C L 80 14 130/76 97 11/30/21 07:59 36.6 C 66 22 164/102 H 99 Pain Intensity Lower Abdomen: Pain Intensity: 8 Transfer of Care Handoff Completed per policy Notes Mental Status: alert / awake / arousable Patient Amnestic to Procedure: Yes Nausea / Vomiting: adequately controlled Pain: adequately controlled Airway Patency, RR, SpO2: stable & adequate BP & HR: stable & adequate Hydration State: stable & adequate Anesthetic Complications: no major complications apparent
[2021-11-30] MEDS: LACTATED RINGER'S 1,000 ML IV SCH ×2 (14:15→19:47)
[2021-11-30] MEDS ORDERED: ACETAMINOPHEN 325 MG TAB PO PRN (14:30)
[2021-11-30] MEDS ORDERED: MoRPHine SULFATE 2 MG/ML CARP IV PRN (14:30)
[2021-11-30] MEDS ORDERED: PHARMACY GLYCEMIC MGMT CONSULT PRN (14:30)
[2021-11-30] MEDS ORDERED: MoRPHine SULFATE 4 MG/ML 1 ML CARP\\VIAL IV PRN (14:30)
[2021-11-30] MEDS ORDERED: oxyCODONE HCL IR 5 MG TAB (IMMEDIATE RELEASE) PO PRN (14:30)
[2021-11-30] MEDS: MoRPHine SULFATE 2 MG/ML CARP IV PRN ×2 (15:06→19:43)
[2021-11-30] MEDS ORDERED: GLUCAGON FOR INJ 1 MG VIAL IM PRN (15:30)
[2021-11-30] MEDS ORDERED: GLUCOSE 10 TABS/TUBE PO PRN (15:30)
[2021-11-30] MEDS ORDERED: DEXTROSE 50% 50 ML SYRINGE IV PRN (15:30)
[2021-11-30] MEDS ORDERED: CARBOHYDRATES FOR HYPOGLYCEMIA PO PRN (15:30)
[2021-11-30] MEDS ORDERED: GLUCOSE 40% GEL 15 GM TUBE PO PRN (15:30)
[2021-11-30] MEDS ORDERED: NovoLIN-N (NPH) PER UNIT CHARGE SQ SCH (16:30)
[2021-11-30] MEDS: ceFAZolin 2000MG 2,000 MG/15 ML SYR IV SCH ×2 (16:34→22:42)
[2021-11-30] MEDS: INSULIN ASPART PER UNIT SC SCH ×2 (17:46→20:55)
[2021-11-30] MEDS: oxyCODONE HCL IR 5 MG TAB (IMMEDIATE RELEASE) PO PRN (17:47)
[2021-11-30] MEDS: HEPARIN SOD 5,000 UNIT/0.5 ML VIAL SQ SCH (19:48)
[2021-11-30] MEDS: DOCUSATE SODIUM 100 MG CAP PO SCH (19:49)
[2021-12-01] MEDS: oxyCODONE HCL IR 5 MG TAB (IMMEDIATE RELEASE) PO PRN ×2 (04:52→10:31)
[2021-12-01] MEDS: LACTATED RINGER'S 1,000 ML IV SCH (04:55)
[2021-12-01] MEDS: MoRPHine SULFATE 2 MG/ML CARP IV PRN (05:48)
[2021-12-01 06:58] LABS: Eosinophils # (auto) 0.01 K/uL (0-0.5); Eosinophils % (auto) 0.1 %; Hematocrit (blood only) 39.9 % (42-52); Hemoglobin 13.2 g/dL (14.0-18.0); Immature Granulocytes # (auto) 0.03 K/uL (0.00-0.02); Immature Granulocytes % (auto) 0.3 %; Lymphocytes # (auto) 1.33 K/uL (1.2-3.4); Lymphocytes % (auto) 15.1 %; Mean Corpuscular Hemoglobin 30.3 pg (25-34); Mean Corpuscular Hgb Conc 33.1 g/dL (32-36); Mean Corpuscular Volume 91.7 fL (80-100); Mean Platelet Volume 9.2 fL (7.4-10.4); Monocytes # (auto) 0.97 K/uL (0.11-0.59); Neutrophils # (auto) 6.49 K/uL (1.4-6.5); Neutrophils % (auto) 73.5 %; Platelet Count 112 K/uL (130-400); RDW Coefficient of Variation 14.3 % (11.5-14.5); RDW Standard Deviation 48.5 fL (36.4-46.3); Red Blood Count 4.35 M/uL (4.7-6.1); White Blood Count 8.83 K/uL (4.8-10.8)
[2021-12-01 07:37] LABS: BUN Creatinine Ratio 13.5 (10-20); Calcium 8.8 mg/dl (8.5-10.1); Est GFR (African American) 110.6 ml/min; Est GFR (Non-African American) 95.4 ml/min; Potassium 3.4 mmol/L (3.5-5.1)
[2021-12-01 07:47] LABS: Estimated Average Glucose 128 mg/dl; Hemoglobin A1C 6.1 % (4.5-5.6)
[2021-12-01] MEDS: DOCUSATE SODIUM 100 MG CAP PO SCH (08:11)
[2021-12-01] MEDS: HEPARIN SOD 5,000 UNIT/0.5 ML VIAL SQ SCH (08:13)
--- NOTE | 2021-12-01 08:30 | Urology Progress Note ---
Date of Service December 01, 2021 Assessment & Plan (1) Prostate cancer: Plan: POD #1 s/p RALP - recovery on pace so far - plan for ambulation this AM - advance diet - plan for d/c home presuming he continues to progress Admission and Anticipated Discharge Date Admission Date: November 30, 2021 Subjective expected levels of pain overnight, but otherwise recovery is very much on pace urine has cleared no nausea labs all stable Physical Exam Physical Exam: incisions appropriate - no significant bruising, etc urine clear in tubing Results & Data ([facility]) Vital Signs (Past 12 Hours) Vital Signs Temp Pulse Resp BP Pulse Ox 12/01/21 07:34 36.7 C 74 18 147/74 H 96 12/01/21 05:45 95 12/01/21 02:40 36.8 C 70 18 158/77 H 98 11/30/21 22:00 36.6 C 80 18 143/77 H 98 PG Care Time/CCT Total # of Minutes Spent Total Time Spent with Patient: Total time spent is greater than 50% in coordination of care (as documented) at patient's floor/unit and/or counseling patient: Coding Level of Care Code 99590 Subseq Hosp Care Lvl 2 Diagnoses Prostate cancer C61
[2021-12-01] MEDS ORDERED: ATORVASTATIN 20 MG TAB PO SCH (09:00)
[2021-12-01] MEDS ORDERED: amLODIPine BESYLATE 5 MG TAB PO SCH (09:00)
[2021-12-01] MEDS: INSULIN ASPART PER UNIT SC SCH ×2 (09:09→13:08)
--- NOTE | 2021-12-01 09:10 | Pharmacy Report ---
Pharmacy Glycemic Short Note 2 - Date of Service December 01, 2021 - Glycemic Short BSG Results (Last 24 hours): 11/30/21 11/30/21 11/30/21 12:44 12:53 17:18 Glucose 172 H POC Glucose 171 H 153 H 11/30/21 12/01/21 12/01/21 20:38 06:43 08:06 Glucose 93 POC Glucose 95 84 OUTPATIENT ANTIDIABETIC REGIMEN: * metformin 1000 mg PO daily * A1c = 6.1% ASSESSMENT: * Carlitos received a total of 19 units of SQ insulin yesterday with excellent glycemic control * He received a one time dose of dexamethasone IV lisset-op, which was covered with NPH 13 units SQ x 1 * Will discontinue basal insulin and loosen NovoLog parameters per no further steroids have been ordered and patient has excellent outpatient control on metformin monotherapy. Diet is being advanced. If tolerated, plan to resume metformin later today. PLAN FOR INPATIENT GLYCEMIC CONTROL: * Metformin currently on hold - plan to resume this afternoon if tolerating oral diet * Basal insulin * discontinue * Bolus insulin - loosen * NovoLog per scale ACHS or Q6hrs while NPO * Goal Range: Low 110 mg/dL - High 140 mg/dL * Correction Factor: 30 mg/dL/unit * Nutritional / Prandial insulin per carb ratio of 1 unit per 10 grams CHO consumed
--- NOTE | 2021-12-01 13:42 | Discharge Summary ---
Date of Service December 01, 2021 Admission HPI Per Admitting Provider 66yo M with prostate cancer who presented for robotic prostatectomy Admission Exam Per Admitting Provider Constitutional well developed and well nourished Neck neck nontender Respiratory normal respiratory effort; no respiratory distress and does not use accessory muscles Cardiovascular Rate/Rhythm: regular rate Vessels: radial pulses present Extremities: no edema Gastrointestinal (Abdomen) Inspection/Auscultation: abdomen normal to inspection Percussion/Palpation: abdomen soft; abdomen nontender and no guarding Musculoskeletal Head/Neck/Chest: normocephalic and head atraumatic Extremities: extremities normal to inspection Skin no rashes and no lesions Trauma: no evidence of skin trauma Neurologic awake; not obtunded Speech / Cognition: normal speech Motor/Sensory: no tremor Psychiatric Orientation: alert and oriented x 3 Genitourinary no CVA tenderness Lymphatic no lymphadenopathy Principal Diagnosis Prostate Cancer Discharge Exam incisions appropriate - no significant bruising, etc urine clear in tubing Discharge Data Allergies Allergy/AdvReac Type Severity Reaction Status Date / Time No Known Allergies Allergy Verified 11/30/21 07:49 Procedures Performed Operation Date: 11/30/21 08:50 Actual Procedures p Robotic Assisted Laparoscopic Radical Retropubic Prostatectomy, Bilateral Pelvic Lymph Node Dissection(Not Applicable) - Liam Moy MD Hospital Course (1) Prostate cancer: 66yo M admitted for a robotic prostatectomy - Pt tolerated the procedure very well. - No acute issues postoperatively. - He was in stable condition overnight with appropriate urine output and stable labs. - He was subsequently discharged home with a Mireles catheter on POD #1. - Pt was in stable condition at the time of discharge. Total Time Total Time Spent Total Time Spent (In Minutes): 15 Discharge Plan Discharge Items Patient Disposition: Home - Self-Care Reason For Visit: Prostate Cancer Discharge Diagnosis: Prostate Cancer Activity: Per Instructions section Lifting: No more than 10 pounds Bathing Comment: OK to shower. No tub baths or soaks. Sexual Activity: Wait until after follow-up appointment Exercise/Sports: Wait until after follow-up appointment Driving/Machine Use: Do not drive while taking prescription pain medication. Non-emergency contact: Surgeon and Urologist Call non-emergency contact if: you have any medication questions, your pain is worsening, you have a fever, your wound has increased redness, your wound has increased drainage and your wound pain has increased Follow-up/Referrals: Liam Moy MD [Physician] - 12/15/21 8:00 am Yaakov Calderón MD [Primary Care Provider] - Urology,Nurse [FAKE FOR SCHEDULES] - 12/07/21 10:00 am Diet: Regular and Carb Consistent or DM2 Addtl Attending Provider Instructions: Please take all medications as prescribed and keep all follow-ups as scheduled. Please call our office at [phone] with any questions, concerns or need to reschedule appointments for any reason. We are happy to assist you We have sent an antibiotic to your pharmacy of choice. Please begin antibiotic as prescribed the day BEFORE your scheduled catheter removal at [facility]. Please continue antibiotic every 12 hours through the day AFTER your catheter removal. Activity: We recommend having someone with you for the first few days after surgery to help care for you. For the first 2 weeks after surgery, we would like you to get up and walk around your house. However, we recommend limit physical activity that would increase your heart rate. This will allow your body to rest and heal. Take naps if you feel tired. Don't lift anything heavier than 10 pounds, mow the law or ride a bicycle until your follow-up appointment. Please avoid long car rides. Home Care: Unless directed otherwise, drink 6 to 8 glasses of water a day (enough to keep your urine light colored). This will also help keep a healthy flow of urine. We recommend using a stool softener for the first two weeks to avoid constipation. Mireles Catheter or Suprapubic Catheter care: Keep the catheter well secured with either a leg back or leg strap with large bag. Empty your bag when it's about half full. You may notice some blood in the b ag. This is normal after surgery and while the catheter is in place. Use mild soap (such as Dove or Dial) and water to wash the catheter and the head of your penis daily, or more frequently if needed. Return to your normal diet, we encourage good protein intake to promote healing. You may shower as normal. Please avoid tub baths or soaking until catheter removed and incisions well healed. Wearing sweat pants while you have the catheter is recommended, they will be more comfortable. Follow-up Your follow up appointments for having your catheter removed, and follow up with your physician should already be scheduled. If you have any questions regarding this, please contact our office. Your final pathology report will be discussed at your physician follow-up appointment. Call [facility] at [phone] right away if you have any of the following: Chest pain or trouble breathing (call 911 or go to the hospital) Fever of 101F or higher, uncontrolled vomiting Heavy bleeding, clots, or bright red blood from the catheter Catheter that falls out or stops draining Foul-smelling discharge from your catheter Redness, swelling, warmth, or increased pain at your incision site Drainage, pus, or bleeding from your incision Pending Studies at Discharge: Yes (pathology) Stand-Alone Forms: My [facility], Smoking Cessation Medications and DC Order Prescriptions: New ciprofloxacin HCl 500 mg tablet 500 mg PO BID 3 Days Qty: 6 RF: 0 oxycodone-acetaminophen [Percocet] 5-325 mg tablet 1 tab PO Q8H PRN (Reason: pain) Qty: 7 RF: 0 docusate sodium [Colace] 100 mg capsule 100 mg PO BID Qty: 30 RF: 0 Continued ascorbate calcium (vitamin C) 500 mg tablet 500 mg PO QAM RF: 0 multivitamin Tablet 1 tab PO QAM RF: 0 metformin 500 mg Tablet 500 mg PO QAM RF: 0 atorvastatin 20 mg Tablet 20 mg PO QAM RF: 0 cholecalciferol (vitamin D3) [Vitamin D3] 1,000 unit Capsule 1,000 unit PO QAM RF: 0 metformin 500 mg Tablet 1,000 mg PO QDD RF: 0 amlodipine 2.5 mg Tablet 2.5 mg PO QAM RF: 0 zinc 22 mg Tablet 22 mg PO QAM RF: 0 mometasone [Nasonex] 50 mcg/actuation [place],Non-Aerosol 2 spray INTRANASAL 4XWK RF: 0 Saline Nasal 0.65 % Aerosol,[place] 1 spray INTRANASAL DAILY RF: 0 Systane (PF) 0.4-0.3 % Dropperette 1 drp OPHTHALMIC (EYE) BID PRN (Reason: Dry Eyes) RF: 0 Discontinued finasteride 5 mg Tablet 5 mg PO QAM RF: 0 Discharge Orders: Discharge Order (Routine); Ordered 12/01/21 Ordered By: Tanja August/Other Patient Handouts: Managing Type 2 Diabetes, Indwelling Urinary Catheter Dc, Leg Bag Care Dc Admission Data Admit Date/Time: 11/30/21 12:35 Attending Provider: Liam Moy Admit Provider: Liam Moy Primary Care Provider: Yaakov Calderón Other Interventions: Discharge Summary Assessment (RN) Last Done: 12/01/21 13:39 Coding Level of Care Code D/C DAY MANAGEMENT <30 MINS Diagnoses Prostate cancer C61
== END 2021-12-01 15:18 | disposition home or self-care (01) ==
LOC: ASU 07:26 → 3N 12:35 → INTOOBSV 12:35